=== PATIENT | female | born 1990 | race American Indian/Alaskan Native ===

== ENCOUNTER 2020-09-12 11:57 | Emergency (ER) | payer MEDICAID ==
--- NOTE | 2020-09-12 12:48 | Emergency Department Report ---
HPI - General Chief Complaint: Psych Time Seen by Provider: 09/12/20 12:37 - HPI HPI: Room 11 The patient is a 29-year-old female present with a chief complaint of suicidal ideation. Patient states she has had intermittent suicidal ideation for 6 month s. The patient saw her primary physician today and told her that she was suicidal. The primary physician in turn called EMS have the patient sent to the ED for further evaluation. Patient states her plan was to by "fumes." Patient denies any actual attempts at harming herself. When asked how she is feeling currently the patient replies "just down." ED Past Medical Hx - Past Medical History Previous Medical History?: Yes Hx Asthma: Yes (last attack age 15) - Surgical History Additional Surgical History: x2 - Family History Family history: no significant - Social History Smoking Status: Current Every Day Smoker (Black and milds) Substance Use Type: Marijuana - Medications Home Medications: Home Medications Medication Instructions Recorded Confirmed Last Taken Type Vit-Fe Fumar-FA [ 1 tab PO DAILY 12/04/13 02/12/14 02/10/14 History Vitamin] 1 Ferrous Sulfate [Feosol 325 MG tab] 325 mg PO BID #120 tablet 02/14/14 Unknown Rx Ibuprofen [Motrin 600 MG tab] 600 mg PO Q6H PRN #30 tablet 02/14/14 Unknown Rx oxyCODONE /ACETAMINOPHEN [Percocet 1 - 2 tab PO Q6HR PRN #30 tablet 02/14/14 Unknown Rx 5/325 mg] ED Review of Systems ROS: Stated complaint: SUICIDAL Other details as noted in HPI Constitutional: no symptoms reported Eyes: denies: eye pain ENT: denies: throat pain Respiratory: no symptoms reported Cardiovascular: denies: chest pain Endocrine: no symptoms reported Gastrointestinal: denies: abdominal pain Genitourinary: denies: dysuria Musculoskeletal: denies: back pain Neurological: denies: headache Psychiatric: suicidal thoughts Physical Exam - Physical Exam Vital Signs: Vital Signs 09/12/20 12:29 Temperature 98.8 F Pulse Rate 100 H Respiratory 18 Rate Blood Pressure 136/78 [Right] O2 Sat by Pulse 100 Oximetry Physical Exam: GENERAL: The patient is well-developed well-nourished female sitting on stretcher not appearing to be in acute distress. [] HEENT: Normocephalic. Atraumatic. Extraocular motions are intact. Patient has moist mucous membranes. NECK: Supple. Trachea midline CHEST/LUNGS: Clear to auscultation. There is no respiratory distress noted. HEART/CARDIOVASCULAR: Regular. There is no tachycardia. There is no gallop rub or murmur. ABDOMEN: Abdomen is soft, nontender. Patient has normal bowel sounds. There is no abdominal distention. SKIN: There is no rash. There is no edema. There is no diaphoresis. NEURO: The patient is awake, alert, and oriented. The patient is cooperative. The patient has normal speech MUSCULOSKELETAL: There is no evidence of acute injury. ED Course Vital Signs 09/12/20 12:29 Temperature 98.8 F Pulse Rate 100 H Respiratory 18 Rate Blood Pressure 136/78 [Right] O2 Sat by Pulse 100 Oximetry ED Medical Decision Making - Lab Data Result diagrams: 09/12/20 12:53 09/12/20 12:53 Laboratory Tests 09/12/20 09/12/20 09/12/20 12:45 12:53 12:53 WBC 7.9 RBC 4.62 Hgb 14.7 H Hct 43.4 H MCV 94 MCH 32 MCHC 34 RDW 13.1 L Plt Count 228 Lymph % (Auto) 21.4 [place] % (Auto) 7.6 H Eos % (Auto) 1.5 Baso % (Auto) 1.1 Lymph # (Auto) 1.7 [place] # (Auto) 0.6 Eos # (Auto) 0.1 Baso # (Auto) 0.1 Seg Neutrophils % 68.4 Seg Neutrophils # 5.4 Sodium 138 Potassium 3.8 Chloride 104.5 Carbon Dioxide 25 Anion Gap 12 BUN 11 Creatinine 0.8 Estimated GFR > 60 BUN/Creatinine Ratio 14 Glucose 75 Calcium 9.6 Total Bilirubin 0.50 AST 17 ALT 14 Alkaline Phosphatase 73 Total Protein 7.9 Albumin 3.7 L Albumin/Globulin Ratio 0.9 HCG, Qual Urine Color Urine Turbidity Urine pH Ur Specific [place] Urine Protein Urine Glucose (UA) Urine Ketones Urine Blood Urine Nitrite Urine Bilirubin Urine Urobilinogen Ur Leukocyte Esterase Urine WBC (Auto) Urine RBC (Auto) U Epithel Cells (Auto) Urine Bacteria (Auto) Urine Mucus Salicylates Urine Opiates Screen Negative Urine Methadone Screen Negative Acetaminophen Ur Barbiturates Screen Negative Ur Phencyclidine Scrn Negative Ur Amphetamines Screen Negative U Benzodiazepines Scrn Negative Urine Cocaine Screen Negative Plasma/Serum Alcohol 09/12/20 09/12/20 09/12/20 12:53 12:53 12:53 WBC RBC Hgb Hct MCV MCH MCHC RDW Plt Count Lymph % (Auto) [place] % (Auto) Eos % (Auto) Baso % (Auto) Lymph # (Auto) [place] # (Auto) Eos # (Auto) Baso # (Auto) Seg Neutrophils % Seg Neutrophils # Sodium Potassium Chloride Carbon Dioxide Anion Gap BUN Creatinine Estimated GFR BUN/Creatinine Ratio Glucose Calcium Total Bilirubin AST ALT Alkaline Phosphatase Total Protein Albumin Albumin/Globulin Ratio HCG, Qual Urine Color Urine Turbidity Urine pH Ur Specific [place] Urine Protein Urine Glucose (UA) Urine Ketones Urine Blood Urine Nitrite Urine Bilirubin Urine Urobilinogen Ur Leukocyte Esterase Urine WBC (Auto) Urine RBC (Auto) U Epithel Cells (Auto) Urine Bacteria (Auto) Urine Mucus Salicylates < 0.3 L Urine Opiates Screen Urine Methadone Screen Acetaminophen 5.0 L Ur Barbiturates Screen Ur Phencyclidine Scrn Ur Amphetamines Screen U Benzodiazepines Scrn Urine Cocaine Screen Plasma/Serum Alcohol < 0.01 09/12/20 09/12/20 12:53 Unknown WBC RBC Hgb Hct MCV MCH MCHC RDW Plt Count Lymph % (Auto) [place] % (Auto) Eos % (Auto) Baso % (Auto) Lymph # (Auto) [place] # (Auto) Eos # (Auto) Baso # (Auto) Seg Neutrophils % Seg Neutrophils # Sodium Potassium Chloride Carbon Dioxide Anion Gap BUN Creatinine Estimated GFR BUN/Creatinine Ratio Glucose Calcium Total Bilirubin AST ALT Alkaline Phosphatase Total Protein Albumin Albumin/Globulin Ratio HCG, Qual Negative Urine Color Yellow Urine Turbidity Clear Urine pH 6.0 Ur Specific [place] 1.020 Urine Protein <15 mg/dl Urine Glucose (UA) Neg Urine Ketones 20 Urine Blood Neg Urine Nitrite Neg Urine Bilirubin Neg Urine Urobilinogen 2.0 Ur Leukocyte Esterase Lg Urine WBC (Auto) 61.0 H Urine RBC (Auto) 4.0 U Epithel Cells (Auto) 4.0 Urine Bacteria (Auto) 1+ Urine Mucus Few Salicylates Urine Opiates Screen Urine Methadone Screen Acetaminophen Ur Barbiturates Screen Ur Phencyclidine Scrn Ur Amphetamines Screen U Benzodiazepines Scrn Urine Cocaine Screen Plasma/Serum Alcohol - Differential Diagnosis Suicidal ideation Critical care attestation.: If time is entered above; I have spent that time in minutes in the direct care of this critically ill patient, excluding procedure time. ED Disposition Clinical Impression: Suicidal ideation, UTI (urinary tract infection) Disposition: DC/TX-65 PSY HOSP/PSY UNIT Is pt being admited?: No Does the pt Need Aspirin: No Condition: Stable Referrals: PRIMARY CARE,MD [Primary Care Provider] - 3-5 Days Time of Disposition: 16:17 (Awaiting acceptance)
[2020-09-12 14:06] LABS: Basophils # (Auto) 0.1 K/mm3 (0.0-0.1); Basophils % (Auto) 1.1 % (0.0-1.8); Eosinophils # (Auto) 0.1 K/mm3 (0.0-0.4); Eosinophils % (Auto) 1.5 % (0.0-4.3); Hematocrit 43.4 % (30.3-42.9); Hemoglobin 14.7 gm/dl (10.1-14.3); Lymphocytes # (Auto) 1.7 K/mm3 (1.2-5.4); Lymphocytes % (Auto) 21.4 % (13.4-35.0); Mean Corpuscular HGB Conc 34 % (30-34); Mean Corpuscular Volume 94 fl (79-97); Monocytes # (Auto) 0.6 K/mm3 (0.0-0.8); Monocytes % (Auto) 7.6 % (0.0-7.3); Platelet Count 228 K/mm3 (140-440); Red Blood Count 4.62 M/mm3 (3.65-5.03); Red Cell Distribution Width 13.1 % (13.2-15.2)
[2020-09-12 14:37] LABS: Alanine Aminotransferase 14 units/L (7-56); Albumin 3.7 g/dL (3.9-5); BUN/Creatinine Ratio 14; Blood Urea Nitrogen 11 mg/dL (7-17); Calcium 9.6 mg/dL (8.4-10.2); Hemolysis Index 6
[2020-09-12 15:57] LABS: Amphetamine Screen,Urine Negative; Benzodiazepines Screen,Urine Negative; Cocaine Screen,Urine Negative; Methadone Screen,Urine Negative; Opiate Screen,Urine Negative
[2020-09-12 16:02] LABS: Bacteria,Urine 1+ /HPF (Negative); Bilirubin,Urine NEG (Negative); Blood,Urine NEG (Negative); Color,Urine Yellow (Yellow); Mucus,Urine FEW /HPF; Protein,Urine <15 mg/dL mg/dL (Negative)
[2020-09-12 16:10] LABS: Cannabinoid Screen,Urine Positive
[2020-09-12] MEDS ORDERED: levoFLOXacin 500 MG TAB PO SCH (17:00)
[2020-09-12 20:50] VITALS: BP 120/85
== END 2020-09-12 20:20 ==
LOC: ED 11:57
DX: R45.851 Suicidal ideations (principal); N39.0 Urinary tract infection, site not specified; J45.909 Unspecified asthma, uncomplicated; F17.200 Nicotine dependence, unspecified, uncomplicated; F12.10 Cannabis abuse, uncomplicated; Z98.890 Other specified postprocedural states; Z79.1 Long term (current) use of non-steroidal anti-inflammatories (NSAID); Z79.899 Other long term (current) drug therapy
CPT/HCPCS: 36415; 80053; 80307; 80320; 81001; 84703; 85025; 87086; G0480

== ENCOUNTER 2021-03-19 09:18 | Outpatient (CLI) | payer MEDICAID ==
[~2021-03-19 09:18] MED LIST: REGADENOSON 0.4 MG/5 ML INJ IV ONE
--- NOTE | 2021-03-19 21:27 | Treadmill Report ---
DATE OF SERVICE: 03/19/2021 TREADMILL STRESS TEST REFERRING PHYSICIAN: Ky Clark MD DESCRIPTION OF PROCEDURE: The patient was brought to the stress lab in postabsorptive state exercised under standard Mitchell protocol treadmill. Resting blood pressure is 121/59. Resting EKG is normal. The patient exercised for a total of 3 minutes and 10 seconds on standard Mitchell protocol treadmill. Her peak heart rate was 167. The patient became fatigued. No chest pain, no evidence of ST changes, arrhythmias, or chest pain during stress or recovery. Peak blood pressure is 157/80. CONCLUSIONS: 1. Abnormal treadmill stress test due to markedly poor exercise tolerance and exaggerated heart rate response. 2. No evidence of ST changes, arrhythmias, or chest pain during stress or recovery. 3. Recommend chemical stress test with nuclear perfusion imaging. TID: [id number] RECEIPT: [id number] MEENU/EVA
--- NOTE | 2021-04-02 09:37 | Treadmill Report ---
[facility] Test Date: 2021-03-24 Test Time: 03:50:19 Pat Name: ALMA DELIA GAONA Department: CARDIOLOGY Room: O/P Gender: F Edge Stitcher: Abbey Parra : 1990 Requested By: SUNNY QUINONEZ Order Number: [id number] MD: Sly Sanford Interpretive Statements Electronically Signed On 04-02-2021 9:37:05 EDT by Sly Sanford
== END 2021-03-19 09:19 | disposition home or self-care (01) ==
LOC: CARD 09:18
PROVIDERS: ATTEND Internal Medicine Cardiovascular Disease
DX: R94.39 Abnormal result of other cardiovascular function study (principal); R07.89 Other chest pain
CPT/HCPCS: 93017; J2785

== ENCOUNTER 2021-05-15 23:28 | Emergency (ER) | payer MEDICAID | END 2021-05-16 01:00 | disposition left against medical advice (07) | LOC: ED 23:28 | DX: R10.9 Unspecified abdominal pain (principal); Z53.21 Procedure and treatment not carried out due to patient leaving prior to being seen by health care provider ==

== ENCOUNTER 2021-05-16 17:38 | Emergency (ER) | payer MEDICAID ==
[2021-05-16] MEDS ORDERED: ONDANSETRON 4 MG/2 ML INJ IV ONE (19:48)
[2021-05-16] MEDS ORDERED: MORPHINE 4 MG/1 ML INJ IV ONE (19:48)
[2021-05-16] MEDS ORDERED: FAMOTIDINE 20 MG/2 ML INJ IV ONE (19:48)
--- NOTE | 2021-05-16 20:28 | Ultrasound Report ---
ULTRASOUND ABDOMEN, LIMITED (RIGHT UPPER QUADRANT) INDICATION: RUQ Pain. COMPARISON: None available. FINDINGS: Pancreas: Visualized portion shows no significant abnormality. Liver: Normal. Gallbladder: Large amount of gallbladder sludge. No stones. Bile ducts: Normal. Common Bile Duct measures 5 mm. Free fluid: None. Additional Findings: None. IMPRESSION: 1. Gallbladder sludge without stones Signer Name: Chandra Sue MD Signed: 05/16/2021 8:24 PM Workstation Name: [id number]
[2021-05-16 20:56] LABS: Basophils # (Auto) 0.1 K/mm3 (0.0-0.1); Basophils % (Auto) 0.9 % (0.0-1.8); Eosinophils # (Auto) 0.1 K/mm3 (0.0-0.4); Eosinophils % (Auto) 1.9 % (0.0-4.3); Hematocrit 42.3 % (30.3-42.9); Hemoglobin 14.3 gm/dl (10.1-14.3); Lymphocytes # (Auto) 1.7 K/mm3 (1.2-5.4); Lymphocytes % (Auto) 22.3 % (13.4-35.0); Mean Corpuscular HGB Conc 34 % (30-34); Mean Corpuscular Volume 95 fl (79-97); Monocytes # (Auto) 0.6 K/mm3 (0.0-0.8); Monocytes % (Auto) 8.3 % (0.0-7.3); Platelet Count 254 K/mm3 (140-440); Red Blood Count 4.46 M/mm3 (3.65-5.03); Red Cell Distribution Width 13.8 % (13.2-15.2)
[2021-05-16 20:57] LABS: Alanine Aminotransferase 48 units/L (7-56); Albumin 3.7 g/dL (3.9-5); BUN/Creatinine Ratio 9; Blood Urea Nitrogen 7 mg/dL (7-17); Calcium 8.9 mg/dL (8.4-10.2); Hemolysis Index 29
--- NOTE | 2021-05-16 21:06 | Emergency Department Report ---
ED Abdominal Pain HPI - General Chief Complaint: Abdominal Pain Stated Complaint: STOMACH AND BACK PAIN Source: patient Mode of arrival: Ambulatory Limitations: No Limitations - History of Present Illness Initial Comments: Patient is a A0 30-year-old -[place] female with a history of asthma and morbid obesity who presents to the ED with complaint of acute onset pers istent intermittent epigastric pain that radiates to the right upper quadrant area and mid posterior thoracic pain with nausea for the last 1 week, worse in the last 2 days. Patient states that the pain is worse with food intake or laying down in the supine position. Patient also states that she has a history of chronic constipation and usually has to self medicate with laxatives in order to have a bowel movement, the last time which was 24 hours ago. Patient however states that she is currently on her menstrual cycle. Patient denies vomiting, shortness of breath, chest pain, dysuria, urinary frequency and urgency, vaginal discharge, headache, hematemesis, diarrhea, constipation, traumatic injury, fever and chills or cough. MD Complaint: abdominal pain (Epigastric and right upper quadrant pain), other (Nausea) -: Sudden, week(s) (1) Location: RUQ, epigastric Radiation: RUQ, epigastric, back (Mid posterior thoracic area) Migration to: no migration Severity: severe Severity scale (0 -10): 7 Quality: cramping, aching Consistency: intermittent Improves With: nothing Worsens With: eating, other (Laying supine) Associated Symptoms: denies other symptoms, nausea, constipation, anorexia. denies: vomiting, diarrhea, fever, chills, dysuria, hematemesis, hematochezia, hematuria, syncope, other - Related Data LMP Date: 05/15/21 Home Medications Medication Instructions Recorded Confirmed Last Taken Vit-Fe Fumar-FA [ 1 tab PO DAILY 12/04/13 02/12/14 02/10/14 Vitamin] 1 Previous Rx's Medication Instructions Recorded Last Taken Type Ferrous Sulfate [Feosol 325 MG tab] 325 mg PO BID #120 tablet 02/14/14 Unknown Rx Ibuprofen [Motrin 600 MG tab] 600 mg PO Q6H PRN #30 tablet 02/14/14 Unknown Rx oxyCODONE /ACETAMINOPHEN [Percocet 1 - 2 tab PO Q6HR PRN #30 tablet 02/14/14 U nknown Rx 5/325 mg] Dicyclomine [Bentyl] 20 mg PO Q6H PRN #30 tablet 05/16/21 Unknown Rx Famotidine [Pepcid] 20 mg PO BID #60 tablet 05/16/21 Unknown Rx Fluconazole [Diflucan TAB] 200 mg PO QDAY #2 tablet 05/16/21 Unknown Rx Omeprazole 40 mg PO DAILY #30 capsule. 05/16/21 Unknown Rx Ondansetron [Zofran Odt] 4 mg PO Q8HR PRN #15 tab.rapdis 05/16/21 Unknown Rx cephALEXin [Keflex] 500 mg PO Q8HR #30 cap 05/16/21 Unknown Rx Allergies Allergy/AdvReac Type Severity Reaction Status Date / Time No Known Allergies Allergy Verified 05/16/21 17:54 ED Review of Systems ROS: Stated complaint: STOMACH AND BACK PAIN Other details as noted in HPI Constitutional: denies: chills, fever Eyes: denies: eye pain, eye discharge, vision change ENT: denies: ear pain, throat pain Respiratory: denies: cough, shortness of breath, wheezing Cardiovascular: denies: chest pain, palpitations Endocrine: no symptoms reported Gastrointestinal: abdominal pain (Epigastric and right upper quadrant pain), nausea, constipation. denies: diarrhea Genitourinary: denies: urgency, dysuria, discharge Musculoskeletal: denies: back pain, joint swelling, arthralgia Skin: denies: rash, lesions Neurological: denies: headache, weakness, paresthesias Psychiatric: denies: anxiety, depression Hematological/Lymphatic: denies: easy bleeding, easy bruising ED Past Medical Hx - Past Medical History Hx Asthma: Yes (last attack age 15) - Surgical History Additional Surgical History: x2 - Social History Smoking Status: Current Every Day Smoker (Black and milds) Substance Use Type: Marijuana - Medications Home Medications: Home Medications Medication Instructions Recorded Confirmed Last Taken Type Vit-Fe Fumar-FA [ 1 tab PO DAILY 12/04/13 02/12/14 02/10/14 History Vitamin] 1 Ferrous Sulfate [Feosol 325 MG tab] 325 mg PO BID #120 tablet 02/14/14 Unknown Rx Ibuprofen [Motrin 600 MG tab] 600 mg PO Q6H PRN #30 tablet 02/14/14 Unknown Rx oxyCODONE /ACETAMINOPHEN [Percocet 1 - 2 tab PO Q6HR PRN #30 tablet 02/14/14 Unknown Rx 5/325 mg] Dicyclomine [Bentyl] 20 mg PO Q6H PRN #30 tablet 05/16/21 Unknown Rx Famotidine [Pepcid] 20 mg PO BID #60 tablet 05/16/21 Unknown Rx Fluconazole [Diflucan TAB] 200 mg PO QDAY #2 tablet 05/16/21 Unknown Rx Omeprazole 40 mg PO DAILY #30 capsule.dr 05/16/21 Unknown Rx Ondansetron [Zofran Odt] 4 mg PO Q8HR PRN #15 tab.rapdis 05/16/21 Unknown Rx cephALEXin [Keflex] 500 mg PO Q8HR #30 cap 05/16/21 Unknown Rx ED Physical Exam - General Limitations: No Limitations General appearance: alert, in no apparent distress, obese - Head Head exam: Present: atraumatic, normocephalic, normal inspection - Eye Eye exam: Present: normal appearance, PERRL, EOMI - ENT ENT exam: Present: normal exam, normal orophraynx, mucous membranes moist, TM's normal bilaterally, normal external ear exam - Neck Neck exam: Present: normal inspection, full ROM - Respiratory Respiratory exam: Present: normal lung sounds bilaterally. Absent: respiratory distress, wheezes, rales, stridor, chest wall tenderness, accessory muscle use - Cardiovascular Cardiovascular Exam: Present: regular rate, normal rhythm, normal heart sounds. Absent: systolic murmur, diastolic murmur, rubs, gallop - GI/Abdominal GI/Abdominal exam: Present: soft, tenderness (Palpable epigastric and right upper quadrant tenderness, negative Campbell sign), normal bowel sounds. Absent: guarding, rebound, hyperactive bowel sounds, hypoactive bowel sounds, organomegaly - Extremities Exam Extremities exam: Present: normal inspection, full ROM, normal capillary refill - Back Exam Back exam: Present: normal inspection, full ROM. Absent: tenderness, CVA tenderness (R), CVA tenderness (L), muscle spasm, paraspinal tenderness, vertebral tenderness - Neurological Exam Neurological exam: Present: alert, oriented X3, CN II-XII intact, normal gait, reflexes normal - Psychiatric Psychiatric exam: Present: normal affect, normal mood - Skin Skin exam: Present: warm, dry, intact, normal color. Absent: rash ED Course Vital Signs 05/16/21 05/16/21 17:53 20:37 Temperature 98.9 F Pulse Rate 74 Respiratory 12 18 Rate Blood Pressure 129/53 [Left] O2 Sat by Pulse 100 Oximetry ED Medical Decision Making - Lab Data Result diagrams: 05/16/21 20:15 05/16/21 20:15 - Radiology Data Radiology results: report reviewed, image reviewed [facility] [address] [place] [address] Ultrasound Report Signed Patient: ALMA DELIA GAONA MR#: [id number] : 1990 Acct:[id number] Age/Sex: 30 / F ADM Date: 05/16/21 Loc: ED Attending Dr: Ordering Physician: MILES REYNA Date of Service: 05/16/21 Procedure(s): US abdomen limited Accession Number(s): [id number] cc: MILES REYNA ULTRASOUND ABDOMEN, LIMITED (RIGHT UPPER QUADRANT) INDICATION: RUQ Pain. COMPARISON: None available. FINDINGS: Pancreas: Visualized portion shows no significant abnormality. Liver: Normal. Gallbladder: Large amount of gallbladder sludge. No stones. Bile ducts: Normal. Common Bile Duct measures 5 mm. Free fluid: None. Additional Findings: None. IMPRESSION: 1. Gallbladder sludge without stones Signer Name: Chandra Sue MD Signed: 05/16/2021 8:24 PM Workstation Name: [id number] Transcribed By: TL Dictated By: Chandra Sue MD Electronically Authenticated By: Chandra Sue MD Signed Date/Time: 05/16/212023 DD/ 22 TD/TT: - Medical Decision Making This is a A0 30-year-old -[place] female with a history of asthma and morbid obesity who presents to the ED with complaint of acute onset persistent intermittent epigastric pain that radiates to the right upper quadrant area and mid posterior thoracic pain with nausea for the last 1 week, worse in the last 2 days. Patient states that the pain is worse with food intake or laying down in the supine position. Patient also states that she has a history of chronic constipation and usually has to self medicate with laxatives in order to have a bowel movement, the last time which was 24 hours ago. Patient however states that she is currently on her menstrual cycle. In the ED, patient is alert and oriented x3 and is not in any distress. Patient was treated for pain, also given antiemetics as well as antacids. All lab test results were reviewed and are all nonactionable except for mild urinary tract infection and urinalysis. Gallbladder ultrasound showed gallbladder as sludge without gallstones. On reevaluation, patient pain resolved with medications, and patient felt better. Patient symptoms are likely due to complications of GERD given the patient's body habitus. Patient was therefore discharged home on medications including antacids, antibiotics and antiemetics and advised to follow-up with her primary care physician in 5 to 7 days for reevaluation. Patient is advised to return to the ED immediately if symptoms get worse. - Differential Diagnosis GERD; gastritis; cholelithiasis; cholecystitis; pancreatitis Critical care attestation.: If time is entered above; I have spent that time in minutes in the direct care of this critically ill patient, excluding procedure time. ED Disposition Clinical Impression: Acute epigastric pain, Acute abdominal pain in right upper quadrant, Acute urinary tract infection GERD (gastroesophageal reflux disease) Qualifiers: Esophagitis presence: esophagitis presence not specified Qualified Code(s): K21.9 - Gastro-esophageal reflux disease without esophagitis Disposition: DC-01 TO HOME OR SELFCARE Is pt being admited?: No Does the pt Need Aspirin: No Condition: Stable Instructions: Abdominal Pain, Adult, [id number], Gastroesophageal Reflux Disease, Adult, [id number], Abdominal Pain (ED), Urinary Tract Infection, Adult, [id number] Additional Instructions: All lab test results were reviewed and are all nonactionable except for mild urinary tract infection. Gallbladder ultrasound showed no gallstones but significant gallbladder sludge. Therefore your symptoms are likely due to GERD complications, therefore take medications with food, drink plenty of fluids and follow-up with your primary care physician in 5 to 7 days for reevaluation. Return to the ED immediately if symptoms get worse. Prescriptions: Dicyclomine [Bentyl] 20 mg PO Q6H PRN #30 tablet PRN Reason: abdominal pain Fluconazole [Diflucan TAB] 200 mg PO QDAY #2 tablet cephALEXin [Keflex] 500 mg PO Q8HR #30 cap Omeprazole 40 mg PO DAILY #30 capsule. Famotidine [Pepcid] 20 mg PO BID #60 tablet Ondansetron [Zofran Odt] 4 mg PO Q8HR PRN #15 tab.rapdis PRN Reason: Nausea Referrals: [facility] [Provider Group] - 3-5 Days Time of Disposition: 23:31 Print Language: CZECH
[2021-05-16 22:22] LABS: Bacteria,Urine 2+ /HPF (Negative); Bilirubin,Urine NEG (Negative); Blood,Urine LG (Negative); Color,Urine Yellow (Yellow); Mucus,Urine FEW /HPF; Protein,Urine <15 mg/dL mg/dL (Negative); Urobilinogen,Urine < 2.0 mg/dL (<2.0)
[2021-05-17 00:05] VITALS: BP 117/61
== END 2021-05-16 23:45 | disposition home or self-care (01) ==
LOC: ED 17:38
DX: N39.0 Urinary tract infection, site not specified (principal); K21.9 Gastro-esophageal reflux disease without esophagitis; J45.909 Unspecified asthma, uncomplicated; F17.200 Nicotine dependence, unspecified, uncomplicated; F12.90 Cannabis use, unspecified, uncomplicated; Z98.890 Other specified postprocedural states; Z79.899 Other long term (current) drug therapy
CPT/HCPCS: 36415; 76705; 80053; 81001; 83690; 84703; 85025; 87086; 96374; 96375; 99284; J2270; J2405